=== PATIENT | male | born 1985 | race African-American/Black ===

== ENCOUNTER 2019-09-03 00:14 | Emergency (ER) | payer BC, SELFPAY ==
[2019-09-03 00:34] VITALS: BP 158/104; PULSE 116; RESP 24; O2SAT 99; BMI 22.4
[2019-09-03 00:58] LABS: Basophils # 0.1 K/mm3 (0-0.2); Basophils % 1.4 % (0.1-2.0); Eosinophils # 0.2 K/mm3 (0.0-0.4); Eosinophils % 2.2 % (0.1-12.0); Hemoglobin 14.2 g/dL (14.1-18.0); Lymphocytes # 3.3 K/mm3 (0.7-4.5); Lymphocytes % 42.6 % (10-50); Mean Corpuscular HGB Conc 32.2 g/dL (31.8-35.4); Mean Corpuscular Hemoglobin 30.8 pg (27.0-31.2); Mean Corpuscular Volume 95.7 fl (80-94); Mean Platelet Volume 7.1 fl (7.4-10.4); Monocytes # 0.5 K/mm3 (0.1-1.0); Monocytes % 6.5 % (1.7-9.3); Neutrophils # 3.7 K/mm3 (1.8-7.8); Neutrophils % 47.3 % (37.0-80.0); Platelet Count 327 K/mm3 (142-424); Red Cell Distribution Width 13.5 % (11.5-17.5); White Blood Count 7.8 K/mm3 (4.8-10.8)
[2019-09-03 01:00] VITALS: TEMP 36.6
[2019-09-03 01:07] LABS: Alanine Aminotransferase 46 U/L (12-78); Albumin Level 5.3 g/dl (3.5-5.0); Albumin/Globulin Ratio 1.6 (1.1-1.8); Alkaline Phosphatase 76 U/L (38-126); Amylase 88 U/L (30-110); Anion Gap 22.9 mEq/L (5-15); Aspartate Amino Transferase 39 U/L (17-59); Bilirubin,Total 1.7 mg/dl (0.2-1.3); Blood Urea Nitrogen 15 mg/dl (9-20); Calcium 11.2 mg/dl (8.4-10.2); Carbon Dioxide 20 mmol/L (22.0-30.0); Chloride 97 mmol/L (98-107); Creatinine Clearance Estimated 111 mL/min (50-200); Estimated Glomerular Filt Rate 76 ml/min (>60); GFR (African American) 92 ML/MIN (>60); Globulin 3.4 g/dL (1.3-3.2); Glucose 122 mg/dl (74-100); Lipase 56 U/L (23-300); Sodium 137 mmol/L (136-145); Total Protein,Serum 8.7 g/dl (6.3-8.2)
[2019-09-03 01:10] LABS: Microscopic, Urine URINE MICROSCOPIC (MICROSCOPIC)
[2019-09-03 01:11] LABS: Potassium 2.9 mmoL/L (3.5-5.1)
[2019-09-03 01:11] LABS: Appearance,Urine SL CLOUDY (Clear); Blood, Urine Negative (Negative); Color,Urine DK YELLOW (Yellow); Glucose,Urine (UA) Negative (Negative); Ketones,Urine 1+ (Negative); Leukocyte Esterase,Urine Negative (Negative); Nitrate,Urine Negative (Negative); PH,Urine 6.5 (5.0-8.5); Protein,Urine 1+ (Negative); Specific Gravity, Urine 1.025 (1.005-1.030)
[2019-09-03 01:12] LABS: Lactic Acid 7.3 mmol/L (0.7-2.1)
--- NOTE | 2019-09-03 01:13 | [facility].EDNVD ---
ED Disposition Clinical Impression: Hypokalemia, Elevated lactic acid level Abdominal pain Qualifiers: Abdominal location: epigastric Qualified Code(s): R10.13 - Epigastric pain Disposition: Left Against Medical Advice Condition on Discharge: Good Instructions: DI for Acute Abdomen Additional Instructions: fluids and see pcp for follow up Referrals: Provider,Referral, [Primary Care Provider] - - Critical Care Critical Care Time: No Attestation: On 09/03/19, the high probability of a clinically significant, sudden or life threatening deterioration of the following system(s) required my full and direct attention, intervention and personal management. The time I documented below is in addition to time spent performing reported procedures but includes the following listed in this critical care notation. Medical Decision Making - Medical Records Medical records reviewed: Yes: I reviewed the patient's medical records. - Haja Inquiry Pt receiving controlled substance: No Vital Signs: 09/03/19 00:34 09/03/19 01:00 Temperature 97.8 F Temperature Source Oral Pulse Rate [Right] 116 H Respiratory Rate 24 Blood Pressure [Right Arm] 158/104 H Blood Pressure Mean [Right Arm] 122 02 Sat by Pulse Oximetry 99 Oxygen Delivery Method Room Air - Lab Data Lab results reviewed: Yes: I reviewed the patient's lab results. Lab Results 09/03/19 00:45: WBC 7.8, RBC 4.60, Hgb 14.2, Hct 44.0, MCV 95.7 H, MCH 30.8, MCHC 32.2, RDW 13.5, Plt Count 327, MPV 7.1 L, Neut % (Auto) 47.3, Lymph % (Auto) 42.6, [place] % (Auto) 6.5, Eos % (Auto) 2.2, Baso % (Auto) 1.4, Neut # (Auto) 3.7, Lymph # (Auto) 3.3, [place] # (Auto) 0.5, Eos # (Auto) 0.2, Baso # (Auto) 0.1 09/03/19 00:45: Sodium 137, Potassium 2.9 L*, Chloride 97 L, Carbon Dioxide 20 L, Anion Gap 22.9 H, BUN 15, Creatinine 1.10, Estimated Creat Clear 111, Estimated GFR 76, Est GFR ( Amer) 92, Glucose 122 H, Calcium 11.2 H, Total Bilirubin 1.7 H, AST 39, ALT 46, Alkaline Phosphatase 76, Total Protein 8.7 H, Albumin 5.3 H, Globulin 3.4 H, Albumin/Globulin Ratio 1.6, Amylase 88, Lipase 56 09/03/19 00:45: Lactate 7.3 H 09/03/19 00:55: Urine Color Dk yellow, Urine Appearance Sl cloudy, Urine pH 6.5, Ur Specific [place] 1.025, Urine Protein 1+, Urine Glucose (UA) Negative, Urine Ketones 1+, Urine Blood Negative, Urine Nitrate Negative, Urine Bilirubin 1+ A, Urine Urobilinogen 1.0, Ur Leukocyte Esterase Negative, Urine WBC 5-10, Ur Squamous Epith Cells Occasional, Ur Renal Epithelial Cell 5-10, Amorphous Sediment 1+, Hyaline Casts Occasional, Other Casts Occasional, Urine Mucus 4+ Result diagrams: 09/03/19 00:45 09/03/19 00:45 Orders (Tests/Meds): ED MEDICATIONS Generic Name Dose Route Start Last Admin Trade Name Freq PRN Reason Stop Dose Admin Sodium Chloride 1,000 mls @ 999 mls/hr 09/03/19 01:00 09/03/19 01:01 Sod Chlor 0.9% 1000ml Bag IV 09/03/19 02:00 999 mls/hr .[id number] ERICA Administration Discontinued Medications Generic Name Dose Route Start Last Admin Trade Name Freq PRN Reason Stop Dose Admin Ondansetron HCl 4 mg 09/03/19 00:46 09/03/19 01:01 Zofran 4mg/2ml Vial IV 09/03/19 00:47 4 mg ONCE ONE Administration Promethazine HCl 25 mg 09/03/19 00:46 09/03/19 01:01 Phenergan 25mg/Ml 1ml Vial IV 09/03/19 00:47 25 mg ONCE ONE Administration Sodium Chloride 25 ml 09/03/19 00:46 09/03/19 01:01 Sod Chlor 0.9% 25ml Bag IV 09/03/19 00:47 25 ml ONCE ONE Administration ORDERS Category Date Time Status CT abdomen pelvis w con Stat Cat Scan 09/03/19 00:46 Ordered Amylase Stat Lab 09/03/19 00:45 Results C-Reactive Protein Stat Lab 09/03/19 00:45 Results Complete Blood Count Auto Diff Stat Lab 09/03/19 00:45 Results Comprehensive Metabolic Panel Stat Lab 09/03/19 00:45 Results Drug Screen,Urine Stat Lab 09/03/19 00:55 Received Erythrocyte Sedimentation Rate Stat Lab 09/03/19 00:45 Results Lipase Stat Lab
--- NOTE | 2019-09-03 01:14 | PC.NURSE ---
Lab called critical results Lactic acid and K+, Dr Booth aware
[2019-09-03 01:16] LABS: Bilirubin,Urine 1+ (Negative)
[2019-09-03 01:17] LABS: Amorphous Sediment,Urine 1+ /lpf; Hyaline Casts,Urine Occasional #/lpf (0); Mucus,Urine 4+ /lpf; Squamous Epithelial Cell,Urine Occasional #/hpf (0-5)
[2019-09-03 01:18] LABS: Other Casts,Urine Occasional #/lpf (0)
[2019-09-03 01:22] LABS: Barbiturates Screen,Urine Negative ng/ml (<200)
--- NOTE | 2019-09-03 01:22 | PC.NURSE ---
Pt pulled his IV out and requests to leave AMA, it was explained to the pt he needed to stay and receive IV fluid therapy. Pt refuses to stay, he signed an AMA paper and is getting dressed to leave. Dr Booth notified.
[2019-09-03 01:23] LABS: Benzodiazepines Screen,Urine Positive ng/ml (<200)
[2019-09-03 01:24] LABS: Cannabinoid Screen,Urine Positive ng/ml (<50)
[2019-09-03 01:25] LABS: Cocaine Screen,Urine Positive ng/ml (<300); Methadone Screen,Urine Negative ng/ml (<300)
[2019-09-03 01:25] LABS: C-Reactive Protein 0.4 mg/L (0-4)
[2019-09-03 01:26] LABS: Opiate Screen,Urine Positive ng/ml (<300)
[2019-09-03 01:27] LABS: Phencyclidine Screen,Urine Negative ng/ml (<25)
[2019-09-03 01:32] VITALS: BP 000/00; PULSE 0; RESP 0; TEMP -17.7; TEMP 0; O2SAT 0
[2019-09-03 01:33] LABS: Amphetamine/Metha Screen,Urine Positive ng/ml (<1000)
[2019-09-03 01:37] LABS: Erythrocyte Sedimentation Rate 10 mm/hr (0-15)
--- NOTE | 2019-11-06 00:34 | PC.NURSE ---
Medical Records sent to [facility], [phone]
== END 2019-09-03 01:37 | disposition left against medical advice (07) ==
PROVIDERS: Emergency Provider Emergency Medicine
DX: R10.13 Epigastric pain (principal); E87.6 Hypokalemia; R79.89 Other specified abnormal findings of blood chemistry; F17.210 Nicotine dependence, cigarettes, uncomplicated; Z88.1 Allergy status to other antibiotic agents
CPT/HCPCS: 80053; 80305; 81001; 82150; 83605; 83690; 85025; 85651; 86140; 87040; 96365; 96375; 99284; J2405